=== PATIENT | male | born 1970 | race Caucasian/White ===

== ENCOUNTER 2019-11-09 07:08 | Day surgery (SDC) | payer BC ==
[2019-11-09] VITALS (7 sets, daily range): BP systolic 113–135; BP diastolic 72–95; PULSE 67–96; TEMP 97.8–98.5
[~2019-11-09] VITALS: Ht 182.9 cm; Wt 86.5 kg
[~2019-11-09 07:08] MED LIST: AMBIEN 10MG10 MG PO; LEXAPRO 10MG10 MG PO; NORCO 325 MG-7.1 TAB PO; PRIL40 PO; XANAX 0.5MG0.5 MG PO; [UNRECOGNIZED DRUG - OTHER]
[2019-11-09] MEDS ORDERED: HYZAAR 25 MG-101 TAB PO (07:29)
--- NOTE | 2019-11-09 09:05 | NUR ---
Pt to GI bay 3 via cart from ENDO. Pt awake and alert. Denies pain or nausea. Pt ambulates to recliner with stand by assistance. Warm blanket provided. Cooled down coffee and muffin provided. Will continue to montior. Call light within reach.
--- NOTE | 2019-11-09 09:20 | NUR ---
Pt continues to rest. Tolerating food and fluids without difficutlies. Will continue to monitor.
--- NOTE | 2019-11-09 09:35 | NUR ---
Pt continues to rest. Denies needs. Call light within reach.
--- NOTE | 2019-11-09 09:50 | NUR ---
Pt continues to rest. Denies needs. Call light within reach.
--- NOTE | 2019-11-09 10:20 | NUR ---
Discharge instructions reviewed. Pt voices understanding. IV site discontinued with all parts intact. Pt up to dress. Call light within reach.
--- NOTE | 2019-11-09 10:29 | NUR ---
Pt escorted to private car via wheel chair. Pt accompanied home by his mother.
== END 2019-11-09 10:28 | disposition home or self-care (01) ==
LOC: SDCO 07:08
DX: D12.5 Benign neoplasm of sigmoid colon (principal); K31.7 Polyp of stomach and duodenum; Z80.0 Family history of malignant neoplasm of digestive organs; K29.30 Chronic superficial gastritis without bleeding; K57.30 Diverticulosis of large intestine without perforation or abscess without bleeding; K21.9 Gastro-esophageal reflux disease without esophagitis; K44.9 Diaphragmatic hernia without obstruction or gangrene; K64.0 First degree hemorrhoids; I10 Essential (primary) hypertension; Z79.899 Other long term (current) drug therapy
CPT/HCPCS: J2250; J2405; J3010; J7030

== ENCOUNTER 2021-11-11 14:37 | Emergency (ER) | payer BC ==
[~2021-11-11] VITALS: Ht 182.9 cm; Wt 79.5 kg
[~2021-11-11 14:37] MED LIST changes: +HYZAAR 25 MG-101 TAB PO
[2021-11-11 15:06] VITALS: TEMP 98.6
[2021-11-11 16:51] LABS: BASO # 0.1 K/mm3 (0.0-0.2); BASO % 0.7 % (0.0-2.0); EOS # 0.1 K/mm3 (0.0-0.7); EOS % 0.9 % (0.0-4.0); GRAN # 5.7 K/mm3 (1.4-6.5); GRAN % 74.3 % (42.2-75.2); HEMATOCRIT 40.7 % (42.0-52.0); LYMPH % 13.6 % (20.0-51.0); MEAN CELL VOLUME 98 fl (80.0-100.0); MEAN CORPUSCULAR HEMOGLOBIN 34 pg (27-31); MEAN CORPUSCULAR HGB CONC 34 g/dl (33.0-37.0); MEAN PLATELET VOLUME 9.1 fl (7.4-10.4); MONO # 0.8 K/mm3 (0.1-0.6); PLATELET COUNT 237 K/mm3 (130-400); RED BLOOD COUNT 4.15 M/mm3 (4.20-5.60); REDCELL DISTRIBUTION WIDTH-CV 12.7 % (11.5-14.5)
[2021-11-11 17:02] LABS: ALBUMIN 3.6 gm/dL (3.5-5.0); BILIRUBIN,TOTAL 1.4 mg/dL (0.2-1.2); CREATININE, serum 1.41 mg/dL (0.72-1.25); MAGNESIUM 1.5 mg/dL (1.6-2.6); POTASSIUM 3.1 mmol/L (3.5-4.5); TOTAL PROTEIN 6.5 gm/dL (6.2-8.1)
[2021-11-11 17:45] VITALS: BP 141/98; PULSE 70
== END 2021-11-11 18:03 | disposition home or self-care (01) ==
LOC: COL.ER 14:37
PROVIDERS: Emergency Medicine
DX: F10.239 Alcohol dependence with withdrawal, unspecified (principal); R03.0 Elevated blood-pressure reading, without diagnosis of hypertension; E83.42 Hypomagnesemia; N17.9 Acute kidney failure, unspecified; R74.01 Elevation of levels of liver transaminase levels; F17.210 Nicotine dependence, cigarettes, uncomplicated
CPT/HCPCS: J2060; J2560

== ENCOUNTER 2024-04-13 13:44 | Inpatient (IN) | payer SELFPAY ==
[2024-04-13] VITALS (35 sets, daily range): BP systolic 96–146; BP diastolic 93–104; PULSE 112–125; TEMP 97.7–98.6; O2SAT 89–100
[~2024-04-13] VITALS: Ht 182.9 cm; Wt 96.6 kg
[2024-04-13] MEDS ORDERED: NS 1,000 ML IV ONE ×2 (14:30→15:15)
[2024-04-13 14:32] LABS: HEMATOCRIT 50.4 % (42.0-52.0); HEMOGLOBIN 17.2 g/dl (13.5-18.0); MEAN CELL VOLUME 92 fl (80.0-100.0); MEAN CORPUSCULAR HEMOGLOBIN 31 pg (27-31); MEAN CORPUSCULAR HGB CONC 34 g/dl (33.0-37.0); MEAN PLATELET VOLUME 8.8 fl (7.4-10.4); PLATELET COUNT 389 K/mm3 (130-400); REDCELL DISTRIBUTION WIDTH-CV 12.8 % (11.5-14.5)
[2024-04-13 14:42] LABS: ALBUMIN 3.7 g/dL (3.5-5.0); BILIRUBIN,TOTAL 1.8 mg/dL (0.2-1.2); C-REACTIVE PROTEIN 5.68 mg/dL (0.00-0.50); CREATININE, serum 3.27 mg/dL (0.72-1.25); POTASSIUM 3.6 mEq/L (3.5-4.5); TOTAL PROTEIN 7.8 g/dl (6.2-8.1)
[2024-04-13 14:50] LABS: TROPONIN-I 0.254 ng/mL (0.00-0.033)
[2024-04-13 15:07] LABS: INR 1.1 (0.8-3.0); PROTHROMBIN TIME 11.8 SECONDS (9.7-12.8)
[2024-04-13 15:13] LABS: BAND 3 % (0-10); LYMPHOCYTE 13 % (20.0-51.0); NEUTROPHILS 76 % (42.0-75.2)
[2024-04-13] MEDS ORDERED: NS IV ONE (15:15)
[2024-04-13] MEDS ORDERED: CALCITONIN IM ONE (15:15)
[2024-04-13] MEDS ORDERED: [UNRECOGNIZED DRUG - OTHER] IM ONE (15:15)
[2024-04-13] MEDS ORDERED: PAMIDRONATE IV ONE (15:15)
[2024-04-13] MEDS ORDERED: NS IV SCH (16:00)
[2024-04-13] MEDS ORDERED: PAMIDRONATE IV SCH (16:00)
[2024-04-13] MEDS ORDERED: Acetaminophen 500 MG TAB PO PRN (16:30)
[2024-04-13] MEDS ORDERED: NS 1,000 ML IV SCH (16:30)
[2024-04-13] MEDS ORDERED: Polyethylene Glycol 3350 17 GM PDS PO PRN (16:30)
[2024-04-13] MEDS ORDERED: Ondansetron 4 MG/2 ML VIAL IV PRN (16:30)
[2024-04-13] MEDS ORDERED: Nicotine 7 MG DAILY PATCH TD SCH (16:52)
[2024-04-13 17:27] LABS: COLLECTION METHOD CLEAN CATCH
[2024-04-13 17:49] LABS: PH 6.5 (5.0-8.5); URINE APPEARANCE CLEAR (CLEAR/HAZY); URINE BLOOD NEGATIVE (NEGATIVE); URINE COLOR YELLOW (YELLOW); URINE GLUCOSE NEGATIVE (NEGATIVE); URINE KETONE NEGATIVE (NEGATIVE); URINE NITRATE NEGATIVE (NEGATIVE); URINE PROTEIN(semi-quant) TRACE (NEGATIVE); URINE UROBILINOGEN 0.2 E.U/dL (0.2-1.0)
[2024-04-13 17:54] LABS: TRICYCLIC ANTIDEPRESS URINE NEGATIVE (NEGATIVE)
--- NOTE | 2024-04-13 18:33 | NUR ---
PT ADMITTED FROM ED AT 1618. PT ABLE TO STATE HIS NAME AND . WHEN ASKED ADMISSION QUESTIONS PT APPEARED TO HAVE TROUBLE FINDING WORDS, ANSWERED QUESTIONS INAPROPRIATELY. PT REQUIRES SBA TO USE URINAL AT BEDSIDE, GAIT VERY UNSTEADY, PT REPORTS DIZZINESS UPON STANDING. PT INSTRUCTED TO NOT GET OUT OF BED WITHOUT ASSISTANCE, CALL LIGHT IN REACH, BED ALARM IN PLACE FOR PT SAFETY.
--- NOTE | 2024-04-13 19:46 | NUR ---
BEDSIDE REPORTT REVEIVED FROM WILLIAMS RN. PATIENT RESTING COMFORTABLY IN BED ABLE TYO ANSER ALL QUESTIONS APPROPRIATLY. PT NO COMPLAINING OF PAIN AT THIS TIME.
--- NOTE | 2024-04-13 19:53 | NUR ---
[facility] PATIRNT ROOM PATIENT NOTED TO BE SITTING IN BEDF. PT GREETS RN AT DOOR AND INTRUDICES SELF. 4 FAMILY MEMBERS NOTED TO BE IN ROOM WITH PT. PT AAO X 4 BUT APPEARS SPORATIC IN MOVEMENT S AND RANDOM IN THOUGHT PROSCESS. PT CANNOT HOLD TOGERTHER COHERANT SENTANCE STRINGS AND HAS SLIGHT TANGENTIAL THIOUGHT PATTERNS. THE RESTY OF THE NEURO EXAM IS UNREMARKABLE AND PATIEN FOLLOWS ALL COMMANDS. PUPALS PEERLA AT 4MM BRISK AND EQUIIL. CARDIAC ASSESMENT SHOWS PT IS PWD WITH GOOD CAP REFIL IN ALL EXTREMITIES. PT IS ON 2 LPM NC SATTING 98- 100 % LUNG SOUNDS CLEAR BILATERAL. SLIGHTLY DIMINISHED IN THE LOWER BASES. PT IS VOIDING BY HIMSELF AND ALL ABD ASSESMENTS ARE WNL.
[2024-04-14] VITALS (83 sets, daily range): BP systolic 105–158; BP diastolic 70–106; PULSE 68–115; TEMP 97.7–98.8; O2SAT 92–99
[2024-04-14] MEDS ORDERED: Heparin 5,000 UNITS/ML 1 ML VIAL SQ SCH
--- NOTE | 2024-04-14 04:29 | NUR ---
PT BLOOD PRESSURES CONTINUE TO BE ELIVATED THROUGHOUT SHIFT. MD CONTACTEDED PRN HYDRALIZINE 10MG Q6 ORDERED. PATIENT CONTINUES TO REST COMFORTABLY AT THIS TIME.
[2024-04-14] MEDS ORDERED: hydrALAZINE 20 MG/ML 1 ML VIAL IV PRN (04:30)
[2024-04-14 05:54] LABS: BASO % 0.2 % (0.0-2.0); EOS # 0.1 K/mm3 (0.0-0.7); EOS % 0.4 % (0.0-4.0); GRAN # 10.3 K/mm3 (1.4-6.5); GRAN % 76.1 % (42.2-75.2); HEMATOCRIT 37.9 % (42.0-52.0); LYMPH # 1.8 K/mm3 (1.2-3.4); LYMPH % 12.9 % (20.0-51.0); MEAN CELL VOLUME 90 fl (80.0-100.0); MEAN CORPUSCULAR HGB CONC 35 g/dl (33.0-37.0); MEAN PLATELET VOLUME 8.9 fl (7.4-10.4); MONO # 1.3 K/mm3 (0.1-0.6); MONO % 9.4 % (1.7-9.3); REDCELL DISTRIBUTION WIDTH-CV 12.9 % (11.5-14.5)
[2024-04-14 05:56] LABS: HEMOGLOBIN 13.1 g/dl (13.5-18.0); MEAN CORPUSCULAR HEMOGLOBIN 31 pg (27-31); PLATELET COUNT 267 K/mm3 (130-400)
[2024-04-14 06:04] LABS: CALCIUM 12.1 mg/dL (8.4-10.2); CREATININE, serum 2.23 mg/dL (0.72-1.25)
[2024-04-14 06:25] LABS: THYROID STIMULATING HORMONE 0.086 uIU/mL (0.350-4.940)
--- NOTE | 2024-04-14 07:38 | NUR ---
Patient laying in bed, responds appropriately, a&o x4, urine output adequate, calcium down from 18 to 12.1 this morning. Shaking and unsteady gait has improved throughout the night. At this time, he is not hungry yet, but has been having adequate intake of water/IVF. No needs at this time.
[2024-04-14] MEDS ORDERED: Potassium Bicarbonate/Citrate 20 MEQ Effervescent TAB PO SCH (08:30)
[2024-04-14] MEDS ORDERED: *Potassium Replacement Protocol MC SCH (08:30)
[2024-04-14] MEDS ORDERED: Furosemide 40 MG/4 ML VIAL IV ONE (08:45)
[2024-04-14] MEDS ORDERED: TOPROL XL 25MG25 MG PO (08:49)
[2024-04-14] MEDS ORDERED: ZYPREXA 5MG5 MG PO (08:50)
[2024-04-14] MEDS ORDERED: PRISTIQ 50 MG T50 MG PO (08:50)
[2024-04-14] MEDS ORDERED: ZYPREXA10 MG PO (08:51)
[2024-04-14] MEDS ORDERED: OLANZapine 5 MG TAB PO SCH ×2 (09:04→21:00)
--- NOTE | 2024-04-14 10:08 | NUR ---
Initial visit; Patient and his daughter thanked Manager Retention for offering Spiritual Care and keeping patient in Manager Retention's prayers. Patient awaiting test results and doesn't really know anything yet, he appreciates Manager Retention keeping him in her prayers.
--- NOTE | 2024-04-14 10:17 | NUR ---
JULIA met with patient and daughter Marianna ([phone]) to complete initial assessment for discharge planning. Patient verified that he lives in [place] alone. He lists his mother Reyna Palmer ([phone]) as his emergency contact. Patient states he does not have a PCP currently but is trying to establish with [facility]. Patient uses [facility]. Patient reports to be uninsured at this time. JULIA discussed positive ETOH and amphatamine and methamphatamine tests at admission. 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 Patient reports that he used to see [facility] for ETOH/drug therapy. Patient reports that he is scheduled to [facility] in [place], [place] on Thursday afternoon where he is sentenced for 13 months. Patient states that his house is going into foreclosure and he voices remorse for his choices. JULIA informed patient that financial counselor will be notified of his self pay status and meet with him to complete FAA. Patient appreciative of this. Discharge plan is home and report to incarceration on Thursday. Discharge plan: Home
[2024-04-14] MEDS ORDERED: Mag/Al Hydrox/Simeth Susp 30 ML CUP PO PRN ×2 (17:30)
[2024-04-14] MEDS ORDERED: Ondansetron 4 MG/2 ML VIAL IV PRN (20:00)
--- NOTE | 2024-04-14 20:21 | NUR ---
Patient arrived to room 1300 as transfer from ICU with diagnosis of hypercalcemia. IVF infusing at 200ml/hr to LAC without s/s IV related complications. Reports pain to head from fall, rating pain 2/10 but denies need for medication. Pt alert and oriented x4 but forgetful at times. Fall preacutions in place. Maalox order obtained and Maalox adminstered for c/o heartburn. Bedside report given to MAZIN Worthy.
[2024-04-15] VITALS (19 sets, daily range): BP systolic 101–137; BP diastolic 70–91; PULSE 80–100; TEMP 97.6–99.1
--- NOTE | 2024-04-15 00:20 | NUR ---
patient lying in bed,a lert and oriented x4. denies chest pain/discomfort and shortness of breath. IV in LAC difficult to flush, discontinued and new IV placed in LH patent, site CDI with NS running at 200 ml/hr. pt had large loose BM and assisted with a shower, bed linens changed. left shoulder nicotine patch noted, abrasions to left jha CDI, bump noted on right back of head with some tenderness. pt aware of NPO status at midnight. tumblers supervisor notified of scheduling orders for EGD 04/15/24. fall precautions in place, call light within reach. pt has no further needs, questions or concerns at this time.
[2024-04-15 06:25] LABS: BASO % 0.1 % (0.0-2.0); EOS # 0.2 K/mm3 (0.0-0.7); EOS % 2.3 % (0.0-4.0); GRAN # 5.2 K/mm3 (1.4-6.5); GRAN % 73.4 % (42.2-75.2); HEMOGLOBIN 11.2 g/dl (13.5-18.0); LYMPH % 13.6 % (20.0-51.0); MEAN CELL VOLUME 91 fl (80.0-100.0); MEAN CORPUSCULAR HEMOGLOBIN 31 pg (27-31); MEAN CORPUSCULAR HGB CONC 35 g/dl (33.0-37.0); MEAN PLATELET VOLUME 8.9 fl (7.4-10.4); MONO # 0.7 K/mm3 (0.1-0.6); MONO % 9.5 % (1.7-9.3); PLATELET COUNT 220 K/mm3 (130-400); RED BLOOD COUNT 3.58 M/mm3 (4.20-5.60); REDCELL DISTRIBUTION WIDTH-CV 12.7 % (11.5-14.5)
[2024-04-15 06:27] LABS: HEMATOCRIT 32.4 % (42.0-52.0)
[2024-04-15 06:37] LABS: ALBUMIN 2.5 g/dL (3.5-5.0); BILIRUBIN,TOTAL 0.6 mg/dL (0.2-1.2); CALCIUM 8.5 mg/dL (8.4-10.2); CREATININE, serum 1.49 mg/dL (0.72-1.25); TOTAL PROTEIN 4.8 g/dl (6.2-8.1)
[2024-04-15 06:45] LABS: POTASSIUM 2.7 mEq/L (3.5-4.5)
--- NOTE | 2024-04-15 08:05 | NUR ---
Assessment complete. Pt drowsy but easily arousable. A/O x4. NPO for EGD this afternoon. Scheduled morning meds administered with sip of H2O. IVF of NS infuse at 200ml/hr to LH without s/s IV related complications. Fall precautions in place. Rates headache 2/10 but declines offer for Tylenol.
[2024-04-15] MEDS ORDERED: Potassium Bicarbonate/Citrate 20 MEQ Effervescent TAB PO SCH (08:15)
[2024-04-15] MEDS ORDERED: NS & 40 mEq KCl 1,000 ML IV SCH (08:30)
[2024-04-15] MEDS ORDERED: Magnesium Sulfate 4% 50 ML IV ONE (08:30)
[2024-04-15] MEDS ORDERED: Magnesium Sulfate 2 GM/50 ML IV SOLN IV ONE (10:45)
[2024-04-15 13:43] LABS: CALCIUM 8.1 mg/dL (8.4-10.2); CREATININE, serum 1.37 mg/dL (0.72-1.25); MAGNESIUM 2.1 mg/dL (1.6-2.6); POTASSIUM 3.4 mEq/L (3.5-4.5)
--- NOTE | 2024-04-15 15:00 | NUR ---
Patient to endoscopy via cart, per endo staff.
--- NOTE | 2024-04-15 15:02 | NUR ---
JULIA notes pt was taken down for an EGD. Pt will [facility] afternoon and needs discharge by then. Discharge Plan: home
[2024-04-15] MEDS ORDERED: Lidocaine PF 2% (20 MG/ML) 5 ML VIAL ONE (15:23)
--- NOTE | 2024-04-15 18:47 | NUR ---
Patient returned from endoscopy at approximately 1600. VSS- see flowsheet. Reports headache 07/29, declines offer for Tylenol. K+ and Mg+ replaced today. Denies needs at this time.
[2024-04-16 03:55] VITALS: BP 127/77; PULSE 91; TEMP 98.9
[2024-04-16 04:00] VITALS: BP_SYST 127
[2024-04-16 06:12] LABS: BASO % 0.3 % (0.0-2.0); EOS # 0.3 K/mm3 (0.0-0.7); EOS % 4.9 % (0.0-4.0); GRAN # 4.1 K/mm3 (1.4-6.5); GRAN % 59.4 % (42.2-75.2); HEMOGLOBIN 10.9 g/dl (13.5-18.0); LYMPH # 1.7 K/mm3 (1.2-3.4); LYMPH % 24.7 % (20.0-51.0); MEAN CELL VOLUME 91 fl (80.0-100.0); MEAN CORPUSCULAR HEMOGLOBIN 31 pg (27-31); MEAN CORPUSCULAR HGB CONC 34 g/dl (33.0-37.0); MEAN PLATELET VOLUME 8.8 fl (7.4-10.4); MONO # 0.7 K/mm3 (0.1-0.6); MONO % 9.7 % (1.7-9.3); PLATELET COUNT 197 K/mm3 (130-400); RED BLOOD COUNT 3.53 M/mm3 (4.20-5.60); REDCELL DISTRIBUTION WIDTH-CV 12.8 % (11.5-14.5)
[2024-04-16 06:20] LABS: HEMATOCRIT 32.1 % (42.0-52.0)
[2024-04-16 06:40] LABS: ALBUMIN 2.4 g/dL (3.5-5.0); BILIRUBIN,TOTAL 0.4 mg/dL (0.2-1.2); CALCIUM 7.7 mg/dL (8.4-10.2); CREATININE, serum 1.2 mg/dL (0.72-1.25); POTASSIUM 3.4 mEq/L (3.5-4.5); TOTAL PROTEIN 5.1 g/dl (6.2-8.1)
[2024-04-16 07:38] VITALS: BP 127/90; PULSE 54; TEMP 98.7
--- NOTE | 2024-04-16 08:35 | NUR ---
Assessment completed. Patient a/o x4. Denies pain or needs.
[2024-04-16] MEDS ORDERED: PROTONIX 40MG T40 MG PO (08:47)
[2024-04-16] MEDS ORDERED: FLOMAX 0.40.4 MG/CAP PO (08:50)
[2024-04-16 09:06] VITALS: BP_SYST 127
--- NOTE | 2024-04-16 09:45 | NUR ---
INT to LH d/c'd with cath tip intact. Pettit d/c'd, 7.5ml of water removed from balloon. Yazmin care provided.
--- NOTE | 2024-04-16 11:41 | NUR ---
Patient escorted to private vehicle via w/c and discharged home with daughter.
== END 2024-04-16 11:41 | disposition home or self-care (01) | DRG 640 ==
LOC: COL.ER 13:44 → ICU 15:42 → MEDICAL 15:42
PROVIDERS: Emergency Medicine; Internal Medicine Gastroenterology; ADMIT Internal Medicine
PROC: 0DB58ZX Excision of Esophagus, Via Natural or Artificial Opening Endoscopic, Diagnostic (ICD-10-PCS; principal; 2024-04-15 15:15)
DX: E83.52 Hypercalcemia (principal); G93.41 Metabolic encephalopathy; N17.9 Acute kidney failure, unspecified; E86.0 Dehydration; I10 Essential (primary) hypertension; E78.5 Hyperlipidemia, unspecified; F32.A Depression, unspecified; F41.9 Anxiety disorder, unspecified; E83.42 Hypomagnesemia; R00.0 Tachycardia, unspecified; F17.290 Nicotine dependence, other tobacco product, uncomplicated; E87.6 Hypokalemia; Z20.822 Contact with and (suspected) exposure to COVID-19; K20.90 Esophagitis, unspecified without bleeding; T46.5X5A Adverse effect of other antihypertensive drugs, initial encounter; F15.10 Other stimulant abuse, uncomplicated; T50.2X5A Adverse effect of carbonic-anhydrase inhibitors, benzothiadiazides and other diuretics, initial encounter; R79.89 Other specified abnormal findings of blood chemistry
CPT/HCPCS: A4314; J0360; J0630; J1644; J1940; J2430; J2704; J3475; J3480; J7030